=== PATIENT | male | born 1945 | race Caucasian/White ===

== ENCOUNTER → 2016-05-23 | Outpatient (CLI) | payer OTHER ==
[~2016-05-23] MED LIST: BACTRIM DS TAB1 EACH PO; FLOMAX PO; PYRIDIUM200 MG PO
--- NOTE | ~2016-05-23 | CARDNUC ---
[facility] [address] [email or web address] [address] CARDIAC NUCLEAR IMAGING REPORT Name: RAULITO HERRON EVA Room #: REG CL [facility]#: [id number] Admission: 05/23/16 Attend Phys: Brandt Fields, Discharge: Date of : 41 Date of Service: 05/23/16 1611 Report #: [id number] THIS REPORT FOR: //name// CC: Brandt Olson DO DATE OF SERVICE: 05/23/2016 NUCLEAR STRESS TEST ORDERING PHYSICIAN: Jorge Fields MD, [facility] INDICATIONS: Chest pain. CARDIAC HISTORY: Negative. RISK FACTORS: Include age, hyperlipidemia, and tobacco use. MEDICATIONS: Include atorvastatin and aspirin. Lexiscan study. 0.4 mg was infused over approximately 10 seconds. During the infusion, there were no complaints of chest discomfort. Resting blood pressure 119/67 with heart rate of 49. Peak blood pressure 110/62, heart rate of 87. Recovery blood pressure 124/71 with heart rate of 67. Resting ECG demonstrates a sinus rhythm with nonspecific ST-T wave abnormalities. During the infusion, there were no inducible ST segment abnormalities. Recovery was normal. The patient underwent a single-day Gated SPECT myocardial perfusion imaging protocol with a rest dose of 9.6 mCi of IV Cardiolite and a stress dose of 29.4 mCi of IV Cardiolite. Stress dose was injected at peak infusion and the patient was imaged in the supine and prone position. FINDINGS: Review of the raw dataset reveals a fair technical quality study. There is a moderate amount of extracardiac uptake and in particular, there was a loop of bowel adjacent to the inferolateral wall in the rest dataset. The patient's SPECT images demonstrated at rest moderate size, moderate intensity inferior defect with otherwise uniform uptake of tracer. Images obtained following vasodilator stress demonstrated that this defect in the inferior wall is slightly more severe and still only moderate in size. There is a mild amount of inferolateral ischemia. However, this is adjacent to an area [facility] [address] [place] [address] CARDIAC NUCLEAR IMAGING REPORT Name: RAULITO HERRON Room #: REG [facility]#: [id number] Admission: 05/23/16 Attend Phys: Brandt Fields, Discharge: Date of : 41 Date of Service: 05/23/16 1611 Report #: [id number] where there is extracardiac, gut uptake. Prone imaging was not performed. Gated portion of the study demonstrates normal thickening in all segments. Ejection fraction is 78%. TID was normal. End-diastolic volume is normal. IMPRESSION: 1. Clinical portion was negative. 2. Electrocardiographic portion was negative. 3. Nuclear portion was mildly positive. 4. Exercise capacity was not assessed. In conclusion, the study is mildly abnormal in that there is a subtle reversible inferolateral defect. However, this is adjacent to an area of extracardiac, gut uptake. This may be lead generation representative of artifact. Left ventricular systolic function is normal. This is overall a low to moderate risk study. Significant features of ischemia were not present. By: 1611 1720 Cali Marrero MD, FACC /nt
--- NOTE | ~2016-05-23 | 2DMMODE ---
[facility] [address] [email or web address] [address] 2 D/M-MODE ECHOCARDIOGRAM Name: RAULITO HERRON Room #: REG [facility]#: [id number] Admission: 05/23/16 Attend Phys: Brandt Fields, Discharge: Date of : 41 Date of Service: 05/23/16 1111 Report #: [id number] THIS REPORT FOR: //name// APPROVED REPORT Study performed: 05/23/2016 09:17:51 EXAM: Comprehensive 2D, Doppler, and color-flow Echocardiogram Patient Location: Out-Patient Blood Pressure: 108/78 mmHg HR: 54 bpm Other Information Study Quality: Adequate Indications CAD Cardiomyopathy 2D Dimensions RVDd: 38.86 mm LVEF(%): 54.50 (>50%) IVSd: 9.22 (7-11mm) LVOT Diam: 21.00 (18-24mm) LVDd: 39.59 mm PWd: 9.02 (7-11mm) Ascending Aorta: 35.34 mm LVDs: 28.58 (25-40mm) IVC: 18.00 mm Aortic Root: 32.95 mm Rogers's LVEF: 54.50 % Volumes Left Atrial Volume (Systole) Single Plane 4CH: 42.09 mL Single Plane 2CH: 36.23 mL LA ESV Index: 23.00 mL/m2 Aortic Valve AoV Peak Fredy.: 1.02 m/s AO Peak Gr.: 4.13 mmHg LV Max P.56 mmHg LV Max: 1.07 m/s Mitral Valve E/A Ratio: 1.2 MV Decel. Time: 225.17 ms MV E Max Fredy.: 0.87 m/s MV A Fredy.: 0.74 m/s [facility] [address] [place] [address] 2 D/M-MODE ECHOCARDIOGRAM Name: GOPALRAULITODARCI VELASQUEZ Room #: REG [facility]#: [id number] Admission: 05/23/16 Attend Phys: Brandt Fields, Discharge: Date of : 41 Date of Service: 05/23/16 1111 Report #: [id number] PHT: 65.30 ms Pulmonary Valve PV Peak Fredy.: 0.92 m/s PV Peak Gr.: 3.40 mmHg Pulmonary Vein P Vein S: 50.3 m/s P Vein D: 42.9 m/s P Vein A Dur.: 27.7 m/s PVa Duration: 101 Tricuspid Valve TR Peak Fredy.: 2.26 m/s RAP Estimate: 5.00 mmHg TR Peak Gr.: 20.43 mmHg Left Ventricle The left ventricle is normal size. There is normal LV segmental wall motion. There is normal left ventricular wall thickness. The left ventricular systolic function is normal. The left ventricular ejection fraction is within the normal range. LVEF is 55-60%. The left ventricular diastolic function is normal. Right Ventricle The right ventricle is normal size. The right ventricular systolic function is normal. Atria The left atrium size is normal. The right atrium size is normal. Aortic Valve The aortic valve is normal in structure. No aortic regurgitation is present. There is no aortic valvular stenosis. Mitral Valve The mitral valve is normal in structure. There is no mitral valve regurgitation noted. No evidence of mitral valve stenosis. Tricuspid Valve The tricuspid valve is normal in structure. There is trace tricuspid regurgitation. The right atrial pressure is estimated at 5 mmHg. There is no pulmonary hypertension. The estimated PAP was 25 mmHg. Pulmonic Valve The pulmonary valve is normal in structure. There is no pulmonic valvular regurgitation. [address] [address] 2 D/M-MODE ECHOCARDIOGRAM Name: RAULITO HERRON Room #: REG CL Greg#: [id number] Admission: 05/23/16 Attend Phys: Brandt Fields, Discharge: Date of : 41 Date of Service: 05/23/16 1111 Report #: [id number] Great Vessels The aortic root is normal in size. IVC is normal in size and collapses >50% with inspiration. Pericardium There is no pericardial effusion. <Conclusion> The left ventricular ejection fraction is within the normal range. There is normal LV segmental wall motion. LVEF is 55-60%. The aortic valve is normal in structure. No aortic valvular stenosis or insufficiency. The mitral valve is normal in structure. No mitral valve regurgitation noted. Estimated pulmonary artery pressure was 25 mmHg. There is no pericardial effusion. <ELECTRONICALLY SIGNED> By: Maurice Phan MD, FACC 05/23/16 1111 1111 1111 Maurice Phan MD, FACC /INF
== END ==
LOC: CV 04-22 10:40
DX: R07.9 Chest pain, unspecified (principal); E78.5 Hyperlipidemia, unspecified; Z72.0 Tobacco use

== ENCOUNTER 2017-08-10 23:49 | Emergency (ER) | payer OTHER ==
[~2017-08-10] VITALS: Ht 172.7 cm; Wt 90.7 kg
--- NOTE | ~2017-08-10 | EKG ---
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
[2017-08-11] MEDS ORDERED: PROSCAR 5MG TABL5 MG PO (00:20)
[2017-08-11] MEDS ORDERED: ZETIA10 MG PO (00:21)
[2017-08-11] MEDS ORDERED: LEVITRA20 MG PO (00:22)
[2017-08-11] MEDS ORDERED: FLOMAX0.4 MG PO (00:22)
[2017-08-11 00:30] LABS: ABSOLUTE NEUTROPHILS 4.8 thou/uL (1.4-8.2); BASOPHILS 0.8 % (0.0-2.0); EOSINOPHILS 1.5 % (0.0-3.0); HEMOGLOBIN 14.6 gm/dL (14.0-18.0); LYMPHOCYTES 21.9 % (24.0-44.0); MCH 32.2 pg (26.0-34.0); MCHC 34.9 g/dL (28.0-37.0); MCV 92.1 fL (80.0-100.0); MONOCYTES 6.2 % (1.0-8.0); PLATELET COUNT 142 thou/uL (150-400); POLYS 69.6 % (36.0-66.0); RBC 4.55 mil/uL (4.50-6.00); RDW 14.3 % (10.5-14.5); WBC 6.8 thou/uL (4.0-11.0)
[2017-08-11 00:38] LABS: ANION GAP 13 mmol/L (7-16); BUN 23 mg/dL (7-18); CALCIUM 8.6 mg/dL (8.5-10.1); CHLORIDE 106 mmol/L (98-107); CO2 24 mmol/L (21-32); CREATININE 0.9 mg/dL (0.7-1.3); GLUCOSE 136 mg/dL (74-106); POTASSIUM 3.6 mmol/L (3.5-5.1); SODIUM 143 mmol/L (136-145)
[2017-08-11 00:46] LABS: ALBUMIN 3.5 g/dL (3.4-5.0); MAGNESIUM 1.8 mg/dL (1.8-2.4); SGOT 22 U/L (15-37); SGPT 30 U/L (30-65); TOTAL BILIRUBIN 0.6 mg/dL (<0.1-1.0); TOTAL PROTEIN 6.7 g/dL (6.4-8.2); TROPONIN-I <0.06 ng/mL (<0.06)
[2017-08-11 01:54] VITALS: BP 96/54
== END 2017-08-11 01:55 | disposition home or self-care (01) ==
LOC: ER 23:49
PROVIDERS: Emergency Medicine
DX: R55 Syncope and collapse (principal); N40.0 Benign prostatic hyperplasia without lower urinary tract symptoms